=== PATIENT | female | born 1985 | race Caucasian/White ===

== ENCOUNTER → 2024-04-02 | Outpatient (CLI) | payer OTHER ==
--- NOTE | 2024-04-02 15:59 | MR ---
EXAMINATION TYPE: MR brain wo con DATE OF EXAM: 04/02/2024 3:47 PM COMPARISON: None available. 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 No gadolinium was given. FINDINGS: The winter-white junctions, ventricular system, basal cisterns appear unremarkable. Midline structure s show no abnormality. Diffusion-weighted imaging shows no evidence of restricted diffusion. The susc eptibility weighted images do not reveal any evidence for micro-hemorrhage. The bone marrow signal is within normal limits. Paranasal sinuses and mastoid air cells: No significant paranasal sinus disease. Visualized orbits: Orbital contents are intact. IMPRESSION: Unremarkable MRI of the brain without IV contrast. [facility], , 04/02/2024 3:57 PM
== END | disposition home or self-care (01) ==
LOC: RADMRIMAIN 14:58
PROVIDERS: ATTEND Family Medicine
DX: R51.9 Headache, unspecified (principal); H53.9 Unspecified visual disturbance; R11.0 Nausea
CPT/HCPCS: 70551